=== PATIENT | female | born 1965 | race Caucasian/White ===

== ENCOUNTER 2019-05-26 10:32 | Outpatient (CLI) | payer MEDICARE, BC, SELFPAY ==
--- NOTE | ~2019-05-26 | CT_ITS ---
EXAMINATION: CT abdomen pelvis wo con EXAM DATE: 05/26/2019 11:00 INDICATION: Nausea with right flank pain, symptoms one week. TECHNIQUE: Spiral CT of the abdomen and pelvis was performed without contrast. Axial, coronal and sag ittal images were reviewed. The dose-length product (DLP) for this examination was 363.59 mGy-cm. T he exposure was tailored according to patient size (auto mA exposure control), and iterative reconstr uction (ASIR) was used as additional dose reduction technique. There is no prior study for compariso n. FINDINGS: There is 3 mm right superior calyceal stone. No obstructing ureteral stones. The uterus is not identified and has likely been surgically resected. The bladder is unremarkable. The liver, sp wilma, adrenal glands and pancreas are unremarkable. Gallbladder is unremarkable. No biliary obstruc tion. There is no retroperitoneal or pelvic lymphadenopathy. There is mild to moderate scattered a rteriosclerotic disease. The appendix is normal. The stomach and small bowel are unremarkable. There is expected amount of c olonic stool. No free intraperitoneal gas. The heart is normal in size. There are no pericardial or pleural effusions. The lung bases are unremarkable. Posterior and interbody fusion L4-S1. Mild to moderate L1 chronic compression fracture, moderate L2 chronic compression fracture, both at the titus perior endplates. IMPRESSION: 1. Small right nephrolithiasis. 2. No acute intra-abdominal findings. Reviewed, dictated and finalized at location B. RIBUTION LEAD
== END 2019-05-26 10:33 | disposition home or self-care (01) ==
PROVIDERS: PCP Physician Assistant; Visit Provider Physician Assistant
DX: R10.9 Unspecified abdominal pain (principal)
CPT/HCPCS: 74176

== ENCOUNTER 2020-05-19 07:01 | Outpatient (CLI) | payer MEDICARE, BC, SELFPAY ==
[2020-05-19 07:18] LABS: Basophils Absolute Auto 0.03 K/mm3 (0.00-0.10); Basophils Percent Auto 0.5 % (0.0-1.0); Eosinophils Absolute Auto 0.23 K/mm3 (0.02-0.50); Eosinophils Percent Auto 3.8 % (1.0-6.0); Hematocrit 41.2 % (35.0-49.0); Hemoglobin 13.7 g/dL (12.0-15.0); Immature Granulocyte Absolute 0.02 K/mm3 (0.00-0.00); Immature Granulocyte Percent A 0.3 % (0.0-0.0); Lymphocytes Absolute Auto 2.31 K/mm3 (1.10-4.50); Lymphocytes Percent Auto 38.3 % (18.0-42.0); Mean Corpuscular HGB Conc 33.3 g/dL (32.0-36.0); Mean Corpuscular Hemoglobin 31.7 pg (27.0-31.0); Mean Corpuscular Volume 95.4 fL (78.0-102.0); Mean Platelet Volume 10.1 fl (9.2-11.8); Monocytes Absolute Auto 0.44 K/mm3 (0.10-0.90); Monocytes Percent Auto 7.3 % (2.0-11.0); Neutrophils Percent Auto 49.8 % (50.0-70.0); Platelet Count Result 191 K/mm3 (150-420); Red Blood Count 4.32 M/mm3 (4.20-5.40); Red Cell Distribution Width 13.7 % (11.6-14.4)
[2020-05-19 08:41] LABS: Alanine Aminotransferase 24 U/L (14-59); Albumin Level 3.9 g/dL (3.4-5.0); Alkaline Phosphatase 68 U/L (46-116); Anion Gap 9 mmol/L (8-16); Aspartate Amino Transferase 26 U/L (15-37); Bilirubin,Total 0.4 mg/dL (0.00-1.00); Blood Urea Nitrogen 13 mg/dL (7-18); Calcium 9.1 mg/dL (8.5-10.1); Carbon Dioxide 29 mmol/L (21-32); Chloride 107 mmol/L (98-108); Cholesterol 203 mg/dL (0-200); Estimated Glomerular Filt Rate > 60; Glucose 83 mg/dL (70-99); HDL Direct 69 mg/dL (40-60); LDL Cholesterol Calculated 113 mg/dL (<130); Osmolality Calculated 299 mOsm/kg (285-295); Potassium 4.7 mmol/L (3.5-5.1); Sodium 145 mmol/L (136-145); Total Protein 6.7 g/dL (6.4-8.2); Triglycerides 106 mg/dL (0-150)
== END 2020-05-19 07:02 | disposition home or self-care (01) ==
LOC: CHSLAB 07:07
PROVIDERS: PCP Physician Assistant; Visit Provider Family Medicine
DX: R42 Dizziness and giddiness (principal); Z13.220 Encounter for screening for lipoid disorders; Z13.6 Encounter for screening for cardiovascular disorders
CPT/HCPCS: 36415; 80053; 80061; 85025

== ENCOUNTER 2020-05-21 09:24 | Outpatient (CLI) | payer MEDICARE, SELFPAY ==
--- NOTE | ~2020-05-21 | US_ITS ---
EXAMINATION: US carotid duplex BI DATE: 05/21/2020 10:18 INDICATION: Lightheadedness. Peripheral arterial disease. TECHNIQUE: Grayscale, color Doppler, and pulsed Doppler images of the cervical carotid arteries were obtained. The degree of vessel stenosis is placed in one of the following categories: normal, <50%, 5 0-69%, >=70% but less than near-occlusion, near-occlusion, or total occlusion. Note that percent sten osis relative to normal distal artery lumen diameter is indirectly measured from velocity measurement s as described by Ugo, et al. Radiology 2003; 229:340-346. Notes: Normal: Peak systolic velocity <125 centimeters/sec and no plaque <50%. Peak systolic velocity <125 ( EDV <40; ICA/CCA PSV ratio <2.0; used these factors only a tandem lesions or low cardiac output or co ntralateral disease) 50-69 %: PSV 125-230 (EDV 40-100; ratio 2-4) >= 70% but less than near occlusion: PSV greater than 230 (EDV > 100; ratio> 4.0) Near Occlusion: PSV that is variable; markedly narrowed lumen Occlusion: Absent flow on color/spectral Doppler and no lumen on fletcher scale. COMPARISON: None. FINDINGS: RIGHT: The right common carotid artery (CCA) peak systolic velocity (PSV) is 76 cm/s. The right internal car otid artery (ICA) PSV is 78 cm/s. The right ICA end-diastolic velocity (EDV) is 40 cm/s. The right IC A/CCA PSV ratio is 1.0. The external carotid artery (ECA) PSV is 93 cm/s. There is antegrade flow in the right vertebral artery. LEFT: The left CCA PSV is 81 cm/s. The left ICA PSV is 83 cm/s. The left ICA EDV is 40 cm/s. The left ICA/C CA PSV ratio is 1.0. The ECA PSV is 92 cm/s. There is antegrade flow in the left vertebral artery. IMPRESSION: 1. Less than 50% stenosis in the right internal carotid artery by sonographic criteria. 2. Less than 50% stenosis in the left internal carotid artery by sonographic criteria. Reviewed, dictated and finalized at location B. [employer] IMPRESSION: 1. Less than 50% stenosis in the right internal carotid artery by sonographic c kevineria. 2. Less than 50% stenosis in the left internal carotid artery by sonographic cr domingo.
--- NOTE | ~2020-05-21 | CT_ITS ---
EXAMINATION: CT lung screening DATE: 05/21/2020 09:45 INDICATION: Personal history of nicotine dependence, current smoker with 30 pack year history TECHNIQUE: Computed tomography (CT) of the chest was performed without intravenous contrast. The dose -length product (DLP) was 72.28 mGy-cm. Automated exposure control and iterative reconstruction techn ique were employed. COMPARISON: None FINDINGS: Mild emphysema is noted. There is a 3 mm subpleural nodule of the right lower lobe on image 69. A subtle 7 mm groundglass opacity is present in the right lower lobe on image 59. There is no pl eural effusion or pneumothorax. No pathologically enlarged thoracic lymph nodes are identified. The h eart size is normal. There is mild thoracic spondylosis. IMPRESSION: 1. Lung-RADS category 2: Benign appearance or behavior. Continue annual screening with noncontrast lo w-dose chest CT in 12 months. Reviewed, dictated and finalized at location A. OR PHYSICAL THERAPIST IMPRESSION: 1. Lung-RADS category 2: Benign appearance or behavior. Continue annual screeni ng with noncontrast low-dose chest CT in 12 months.
== END 2020-05-21 09:25 | disposition home or self-care (01) ==
PROVIDERS: PCP Physician Assistant; Visit Provider Physician Assistant
DX: R07.89 Other chest pain (principal); R42 Dizziness and giddiness; Z12.2 Encounter for screening for malignant neoplasm of respiratory organs; Z87.891 Personal history of nicotine dependence
CPT/HCPCS: 71271; 93880

== ENCOUNTER 2020-06-04 07:37 | Outpatient (CLI) | payer MEDICARE, BC, SELFPAY ==
--- NOTE | 2020-06-04 10:00 | EST_ITS ---
Patient Info Name: Rabia Bal Age: 54 years : 1965 Gender: Female Ht: 66 in Wt: 154 lbs BSA: 1.81 m2 HR: 62 bpm BP: 119 / 76 mmHg Heart Rhythm: Sinus Rhythm Technical Quality: Excellent Exam Date: 06/04/2020 10:01 AM Exam Location: [facility] Patient Status: Outpatient Admit Date: 06/04/2020 Staff Ordering Physician: Randa, Gavin RICKS Attending Provider: Muna, Domingo WARE Exercise Technologist: Leslee Ochoa, JUVENTINO Exercise Physician: Mahogany Guillaume CEP Exam Type: CA stress test treadmill w NM Study Info An exercise stress test was performed. History/Risk Factors Tobacco Use: Current - Every Day If Any Current, Tobacco Type: Cigarettes If Current - Every Day \T\ Cigarettes, Amount: Heavy Tobacco Use (>=10/day) History/Risk Factors Current Smoker. Summary 1. 1. Negative Gavin exercise stress test for ischemic ST changes by ECG criteria. 2. 2. Good functional capacity, achieving 10 METs of workload. 3. 3. Appropriate HR response to exercise. 4. 4. Appropriate HR recovery at 1 minute post exercise. 5. 5. Nuclear scan to follow and will be reported separately. Please correlate with it. Protocol: Gavin Stress ECG Details Stage: REST Duration (min): 2 min : 26 sec Speed (mph): 0.0 Grade (%): 0 HR (bpm): 62 SBP (mmHg): 119 DBP (mmHg): 76 METS: --- Stage: REST Duration (min): 3 min : 14 sec Speed (mph): 0.0 Grade (%): 0 HR (bpm): 75 SBP (mmHg): 119 DBP (mmHg): 76 METS: --- Stage: STAGE 1 Duration (min): 1 min : 0 sec Speed (mph): 1.7 Grade (%): 10 HR (bpm): 92 SBP (mmHg): 119 DBP (mmHg): 76 METS: --- Stage: STAGE 1 Duration (min): 2 min : 0 sec Speed (mph): 1.7 Grade (%): 10 HR (bpm): 106 SBP (mmHg): 119 DBP (mmHg): 76 METS: --- Stage: STAGE 1 Duration (min): 3 min : 0 sec Speed (mph): 1.7 Grade (%): 10 HR (bpm): 105 SBP (mmHg): 118 DBP (mmHg): 64 METS: --- Stage: STAGE 2 Duration (min): 1 min : 0 sec Speed (mph): 2.5 Grade (%): 12 HR (bpm): 118 SBP (mmHg): 118 DBP (mmHg): 64 METS: --- Stage: STAGE 2 Duration (min): 2 min : 0 sec Speed (mph): 2.5 Grade (%): 12 HR (bpm): 126 SBP (mmHg): 118 DBP (mmHg): 64 METS: --- Stage: STAGE 2 Duration (min): 3 min : 0 sec Speed (mph): 2.5 Grade (%): 12 HR (bpm): 133 SBP (mmHg): 118 DBP (mmHg): 64 METS: --- Stage: STAGE 3 Duration (min): 1 min : 0 sec Speed (mph): 3.4 Grade (%): 14 HR (bpm): 148 SBP (mmHg): 118 DBP (mmHg): 64 METS: --- Stage: STAGE 3 Duration (min): 2 min : 0 sec Speed (mph): 3.4 Grade (%): 14 HR (bpm): 153 SBP (mmHg): 118 DBP (mmHg): 64 METS: --- Stage: STAGE 3 Duration (min): 3 min : 0 sec Speed (mph): 3.4 Grade (%): 14 HR (bpm): 156 SBP (mmHg): 118 DBP (mmHg): 64 METS: --- -----
--- NOTE | 2020-06-04 12:07 | WPDCARIOSTRE ---
Nuclear Stress Test INDICATIONS Chest pain PROCEDURE Patient exercised on a standard Gavin protocol. After achieving target HR, patient was injected with 32.8 mCi of cardiolyte. Multiple tomographic images were obtained. These are of good quality. There is moderate size and moderate severity perfusion defect in anterior wall during stress imaging. A separate resting study was performed after patient was injected with 10.5 mCi of cardiolyte. Multiple tomographic images were obtained. These are of good quality. There is moderate size and moderate severity perfusion defect in anterior wall during rest imaging. CONCLUSION 1. Myocardial perfusion imaging demonstrating fixed moderate size and moderate severity anterior perfusion defect suggestive of breast attenuation artifact. 2. No evidence of reversible ischemia. 3. Left ventriculogram demonstrated normal EF at 60%. No wall motion abnormalities. 4. TID score is normal at 0.98.
== END 2020-06-04 07:38 | disposition home or self-care (01) ==
LOC: CHSCARD 07:39
PROVIDERS: PCP Physician Assistant; Visit Provider Physician Assistant
DX: R07.89 Other chest pain (principal)
CPT/HCPCS: 78452; 93017; A9502

== ENCOUNTER 2020-10-06 09:54 | Outpatient (CLI) | payer MEDICARE, BC, SELFPAY ==
--- NOTE | ~2020-10-06 | XR_ITS ---
XR lumbar spine 2-3V 10/06/2020 10:20 Indication: Lumbar radiculopathy Procedure: 3 views lumbar spine Comparison: CT dated 05/26/2019 Findings: There are pedicular screws transfixing L4-S1. There are chronic superior endplate compressi on fractures of L1 and L2, unchanged. No acute fracture or traumatic malalignment. Pedicles appear to be intact. Sacral foramen are symmetric. There are right renal and possible left renal stones. Impression: 1: No acute abnormality of the lumbar spine. 2: Chronic L1 and L2 superior endplate compression fractures. 3: Right nephrolithiasis. Possible left nephrolithiasis. Reviewed, dictated and finalized at location A. Impression: 1: No acute abnormality of the lumbar spine. 2: Chronic L1 and L2 superior endplate compression fractures. 3: Right nephrolithiasis. Possible left nephrolithiasis.
== END 2020-10-06 09:55 | disposition home or self-care (01) ==
LOC: CHSIMG 09:58
PROVIDERS: PCP Physician Assistant; Visit Provider Nurse Practitioner Psychiatric/Mental Health
DX: M54.16 Radiculopathy, lumbar region (principal)
CPT/HCPCS: 72100

== ENCOUNTER 2020-10-11 13:17 | Outpatient (CLI) | payer MEDICARE, BC, SELFPAY ==
--- NOTE | ~2020-10-11 | XR_ITS ---
EXAMINATION: XR hip LT min 2V DATE: 10/11/2020 13:37 INDICATION: Chronic left hip pain. TECHNIQUE: 2 views of left hip were obtained. COMPARISON: None. FINDINGS: Bone alignment is normal. No fracture. There is mild left hip osteoarthritis. There are kenneth nges of posterior fusion procedure in lumbosacral spine. IMPRESSION: 1. Mild left hip osteoarthritis. Reviewed, dictated and finalized at location A.
== END 2020-10-11 13:18 | disposition home or self-care (01) ==
LOC: CHSIMG 13:20
PROVIDERS: PCP Physician Assistant; Visit Provider Physician Assistant
DX: M25.552 Pain in left hip (principal)
CPT/HCPCS: 73502

== ENCOUNTER 2020-10-17 09:13 | Outpatient (CLI) | payer MEDICARE, BC, SELFPAY ==
--- NOTE | ~2020-10-17 | MR_ITS ---
EXAMINATION: MR lumbar spine wo con DATE: 10/17/2020 10:48 INDICATION: Lumbar radiculopathy. TECHNIQUE: Magnetic resonance imaging (MRI) of the lumbar spine was performed without intravenous con trast. Sequences included sagittal T2-weighted FSE, sagittal T2-weighted FS FSE, sagittal STIR FSE, s agittal T1-weighted FSE, and axial T2-weighted FSE. COMPARISON: Lumbar spine radiograph 10/06/2020 FINDINGS: There is 3 mm retrolisthesis of L2 on L3. There are chronic compression fractures of L1 and L2 with 2/5 and 3/5 loss of height, respectively. There are changes of posterior fusion procedure fr om L4 to S1 with pedicle screws in L4 and S1. There are changes of anterior fusion procedure at L4-L5 and L5-S1 with interbody devices. There is mildly decreased disc height at L1-L2 and L2-L3. The dist al spinal cord signal intensity is normal. The conus medullaris is at T12-L1. The following disc leve ls are specifically discussed: L1-L2: The disc is bulging. There is mild bilateral facet joint osteoarthritis. There is no neural fo raminal stenosis. There is mild central canal stenosis. L2-L3: The disc is bulging. There is mild bilateral facet joint osteoarthritis. There is mild bilater al neural foraminal stenosis. There is mild central canal stenosis. L3-L4: The disc is bulging. There is severe bilateral facet joint osteoarthritis. There is moderate r ight and mild left neural foraminal stenosis. There is mild central canal stenosis. L4-L5: There is moderate right and severe left facet joint hypertrophy. There is mild bilateral neura l foraminal stenosis. There is no central canal stenosis. L5-S1: There is mild right facet joint hypertrophy. There is mild right neural foraminal stenosis. Th ere is no central canal stenosis. IMPRESSION: 1. Moderate lumbar spondylosis. 2. Anterior and posterior fusion procedures from L4 to S1. Reviewed, dictated and finalized at location A.
--- NOTE | ~2020-10-17 | DEXA_ITS ---
Bone Density Report Name: Rabia Bal Age: 55 Sex: Female Ethnicity: White Date of : 1965 Indication: screening for osteoporosis; height loss; prior fracture; Referring Provider: Muna, Domingo Study: Bone densitometry was performed. Exam Date: October 17, 2020 Accession number: [id number] Bone Density: Region BMD T-score Z-score Classification AP Spine(L1, L2, L3) 1.118 0.9 2.1 Normal Femoral Neck (Left) 0.757 -0.8 0.3 Normal Total Hip (Left) 0.830 -0.9 -0.1 Normal Femoral Neck (Right) 0.731 -1.1 0.1 Osteopenia Total Hip (Right) 0.831 -0.9 -0.1 Normal Femoral Neck Mean 0.744 -0.9 0.2 Normal Total Hip Mean 0.830 -0.9 -0.1 Normal World Health Organization criteria for BMD impression classify patients as: Normal (T-score at or above -1.0), Osteopenia (T-score between -1.0 and -2.5), or Osteoporosis (T-score at or below -2.5). 10-year Fracture Risk: FRAX not reported because: Premenopausal woman Prior hip or vertebral fracture Clinical Information Provided by Patient: Have had a previous hip or vertebral fracture Has had a low trauma fracture Smokes Has used the following medications: Vitamin D, Calcium Patient maximum height was 65 Menopause Age: 48 No regular weight bearing exercise Drinks caffeinated beverages Onset of menses at age 11 Premenopausal Impression: The patient's bone mass is within expected range for age, gender and ethnicity. The patient has risk factors, including: smoking, previous fracture. Discussion: BONE DENSITY IS WITHIN EXPECTED LIMITS FOR AGE, SEX AND RACE. HISTORY OF FRACTURE. Although there is a predictable association between low bone mass and the risk of osteoporotic fractures in untreated postmenopausal women, there are no data relating bone density and fracture risk in younger women. The ISCD position is that the diagnosis of ?low bone mass? or ?osteoporosis? should not be made on densitometric criteria alone. WHO criteria only apply to postmenopausal women. Further evaluation should be considered given the patient's history of fracture at a young age. The patient should follow a healthful lifestyle (good nutrition with adequate calcium and vitamin D, and appropriate weight-bearing exercise). Follow-Up: Consider a repeat BMD and Vertebral Fracture Assessment (VFA) exam in 2 years or sooner if medically necessary, to reassess this patient's status. Reported by: Dr. Tobias Garcia on 10/17/2020 11:11:00 AM. Reviewed, dictated and finalized at location A. DWAYNE
== END 2020-10-17 09:14 | disposition home or self-care (01) ==
PROVIDERS: PCP Physician Assistant; Visit Provider Physician Assistant
DX: M54.16 Radiculopathy, lumbar region (principal); M81.0 Age-related osteoporosis without current pathological fracture
CPT/HCPCS: 72148; 77080

== ENCOUNTER 2022-03-27 07:02 | Outpatient (CLI) | payer MEDICARE, SELFPAY ==
[2022-03-27 08:16] LABS: Alanine Aminotransferase 22 U/L (14-59); Albumin Level 3.6 g/dL (3.4-5.0); Alkaline Phosphatase 72 U/L (46-116); Anion Gap 6 mmol/L (8-16); Aspartate Amino Transferase 15 U/L (15-37); Bilirubin,Total 0.4 mg/dL (0.00-1.00); Blood Urea Nitrogen 15 mg/dL (7-18); Calcium 8.9 mg/dL (8.5-10.1); Carbon Dioxide 30 mmol/L (21-32); Chloride 107 mmol/L (98-108); Cholesterol 182 mg/dL (0-200); Estimated Glomerular Filt Rate > 60; Glucose 85 mg/dL (70-99); HDL Direct 57 mg/dL (40-60); LDL Cholesterol Calculated 103 mg/dL (<130); Osmolality Calculated 295 mOsm/kg (285-295); Potassium 4.3 mmol/L (3.5-5.1); Sodium 143 mmol/L (136-145); Total Protein 6.9 g/dL (6.4-8.2); Triglycerides 110 mg/dL (0-150)
== END 2022-03-27 07:03 | disposition home or self-care (01) ==
LOC: CHSLAB 07:07
PROVIDERS: PCP Family Medicine; Visit Provider Physician Assistant
DX: E78.5 Hyperlipidemia, unspecified (principal)
CPT/HCPCS: 36415; 80053; 80061

== ENCOUNTER 2022-10-03 07:07 | Outpatient (CLI) | payer MEDICARE, SELFPAY ==
[2022-10-03 07:57] LABS: Alanine Aminotransferase 24 U/L (14-59); Albumin Level 3.7 g/dL (3.4-5.0); Alkaline Phosphatase 67 U/L (46-116); Anion Gap 7 mmol/L (8-16); Aspartate Amino Transferase 15 U/L (15-37); Bilirubin,Total 0.7 mg/dL (0.00-1.00); Blood Urea Nitrogen 15 mg/dL (7-18); Calcium 9.3 mg/dL (8.5-10.1); Carbon Dioxide 30 mmol/L (21-32); Chloride 107 mmol/L (98-108); Cholesterol 206 mg/dL (0-200); Estimated Glomerular Filt Rate > 60; Glucose 93 mg/dL (70-99); HDL Direct 78 mg/dL (40-60); LDL Cholesterol Calculated 117 mg/dL (<130); Osmolality Calculated 298 mOsm/kg (285-295); Potassium 4.4 mmol/L (3.5-5.1); Sodium 144 mmol/L (136-145); Total Protein 6.8 g/dL (6.4-8.2); Triglycerides 57 mg/dL (0-150)
[2022-10-07 20:09] LABS: Vitamin D 25 Hydroxy 55 ng/mL (30-100)
== END 2022-10-03 07:08 | disposition home or self-care (01) ==
LOC: CHSLAB 07:10
PROVIDERS: PCP Family Medicine; Visit Provider Physician Assistant
DX: E78.5 Hyperlipidemia, unspecified (principal); E55.9 Vitamin D deficiency, unspecified
CPT/HCPCS: 36415; 80053; 80061; 82306

== ENCOUNTER 2022-10-23 13:18 | Outpatient (CLI) | payer MEDICARE, BC, SELFPAY ==
--- NOTE | ~2022-10-23 | DEXA_ITS ---
Bone Density Report Name: EMILIANO HAYWOOD Age: 57 Sex: Female Ethnicity: White Date of : 1965 Indication: screening for osteoporosis; height loss; prior fracture; Referring Provider: RandaMary Grace, Gavin Study: Bone densitometry was performed. Exam Date: October 23, 2022 Accession number: [id number] Bone Density: Region BMD T-score Z-score Classification AP Spine(L1, L2, L3) 1.080 0.6 1.9 Normal Femoral Neck (Left) 0.793 -0.5 0.7 Normal Total Hip (Left) 0.861 -0.7 0.2 Normal Femoral Neck (Right) 0.724 -1.1 0.1 Osteopenia Total Hip (Right) 0.828 -0.9 0.0 Normal Femoral Neck Mean 0.759 -0.8 0.4 Normal Total Hip Mean 0.844 -0.8 0.1 Normal World Health Organization criteria for BMD impression classify patients as: Normal (T-score at or above -1.0), Osteopenia (T-score between -1.0 and -2.5), or Osteoporosis (T-score at or below -2.5). 10-year Fracture Risk: FRAX not reported because: Premenopausal woman Prior hip or vertebral fracture Clinical Information Provided by Patient: Have had a previous hip or vertebral fracture Has had a low trauma fracture Smokes Has used the following medications: Vitamin D, Calcium Patient maximum height was 65 Menopause Age: 48 No regular weight bearing exercise Drinks caffeinated beverages Onset of menses at age 11 Premenopausal Impression: The patient's bone mass is within expected range for age, gender and ethnicity. The patient has risk factors, including: smoking, previous fracture. Discussion: BONE DENSITY IS WITHIN EXPECTED LIMITS FOR AGE, SEX AND RACE. HISTORY OF FRACTURE. Although there is a predictable association between low bone mass and the risk of osteoporotic fractures in untreated postmenopausal women, there are no data relating bone density and fracture risk in younger women. The ISCD position is that the diagnosis of ?low bone mass? or ?osteoporosis? should not be made on densitometric criteria alone. WHO criteria only apply to postmenopausal women. Further evaluation should be considered given the patient's history of fracture at a young age. The patient should follow a healthful lifestyle (good nutrition with adequate calcium and vitamin D, and appropriate weight-bearing exercise). Follow-Up: Consider a repeat BMD and Vertebral Fracture Assessment (VFA) exam in 2 years or sooner if medically necessary, to reassess this patient's status. Reported by: Dr. Clem Jacinto on 10/23/2022 1:39:00 PM. Reviewed, dictated and finalized at location A. [facility]PITALDaxa
== END 2022-10-23 13:19 | disposition home or self-care (01) ==
LOC: CHSIMG 13:19
PROVIDERS: PCP Physician Assistant; Visit Provider Family Medicine
DX: Z78.0 Asymptomatic menopausal state (principal); M85.88 Other specified disorders of bone density and structure, other site
CPT/HCPCS: 77080

== ENCOUNTER 2023-01-28 12:12 | Outpatient (CLI) | payer MEDICARE, BC, SELFPAY ==
--- NOTE | ~2023-01-28 | XR_ITS ---
EXAMINATION: XR_CERV2-3V_CR DATE: 01/28/2023 12:27 INDICATION: Neck pain radiating down the left arm. TECHNIQUE: 3 views of cervical spine were obtained. COMPARISON: None. FINDINGS: There is 2 mm retrolisthesis of C5 on C6. There is 7 degrees levocurvature of cervicothorac ic spine. There are changes of disc replacement at C6-C7. Vertebral body heights are normal. There is mildly decreased disc height at C5-C6. There is multilevel mild facet joint osteoarthritis. There is mild central canal stenosis at C5-C6. No prevertebral soft tissue swelling. IMPRESSION: 1. Mild cervical spondylosis. 2. Disc replacement at C6-C7. Reviewed, dictated and finalized at location E.
== END 2023-01-28 12:13 | disposition home or self-care (01) ==
LOC: CHSIMG 12:15
PROVIDERS: PCP Physician Assistant; Visit Provider Registered Nurse
DX: M54.2 Cervicalgia (principal); M43.02 Spondylolysis, cervical region
CPT/HCPCS: 72040

== ENCOUNTER 2023-03-02 10:10 | Outpatient (CLI) | payer MEDICARE, BC, SELFPAY ==
--- NOTE | 2023-03-02 11:00 | NEURO_ITS ---
Impression: # Complains of left upper extremity tingling. # Normal Nerve Conduction Study. # No Carpal Tunnel Syndrome or ulnar neuropathy. # Needle/EMG exam not requested. Nerve Conduction Studies Anti Sensory Summary Table Stim Site NR Peak (ms) P-T Amp (?V) Site1 Site2 Delta-P (ms) Dist (cm) Shahab (m/s) Left Median Anti Sensory (2-3nd Digit) Wrist 3.4 35.7 Wrist 2-3nd Digit 3.4 14.0 41 Wrist 3.4 47.2 Wrist 2-3nd Digit 3.4 14.0 41 Left Radial Anti Sensory (Base 1st Digit) Wrist 2.0 38.5 Wrist Base 1st Digit 2.0 0.0 Left Ulnar Anti Sensory (5th Digit) Wrist 2.8 49.8 Wrist 5th Digit 2.8 14.0 50 Motor Summary Table Stim Site NR Onset (ms) O-P Amp (mV) Site1 Site2 Delta-0 (ms) Dist (cm) Shahab (m/s) Left Median Motor (Abd Poll Brev) Wrist 3.4 3.4 Elbow Wrist 4.2 26.0 62 Elbow 7.6 3.0 Left Ulnar Motor (Abd Dig Minimi) Wrist 2.9 5.5 A Elbow Wrist 5.7 32.0 56 A Elbow 8.6 5.2 F Wave Studies NR F-Lat (ms) L-R F-Lat (ms) Left Median (Mrkrs) (Abd Poll Brev) 26.88 Left Ulnar (Mrkrs) (Abd Dig Min) 27.37 MTDD
== END 2023-03-02 10:11 | disposition home or self-care (01) ==
LOC: ANHNEURO 10:12
PROVIDERS: PCP Physician Assistant; Visit Provider Physician Assistant
DX: R20.2 Paresthesia of skin (principal); M54.12 Radiculopathy, cervical region
CPT/HCPCS: 95909

== ENCOUNTER 2023-03-31 06:59 | Outpatient (CLI) | payer MEDICARE, SELFPAY ==
[2023-03-31 07:38] LABS: Alanine Aminotransferase 25 U/L (14-59); Alkaline Phosphatase 72 U/L (46-116); Anion Gap 4 mmol/L (8-16); Aspartate Amino Transferase 17 U/L (15-37); Bilirubin,Total 0.6 mg/dL (0.00-1.00); Blood Urea Nitrogen 15 mg/dL (7-18); Calcium 9.3 mg/dL (8.5-10.1); Carbon Dioxide 32 mmol/L (21-32); Chloride 104 mmol/L (98-108); Cholesterol 196 mg/dL (0-200); Estimated Glomerular Filt Rate > 60; Glucose 94 mg/dL (70-99); HDL Direct 84 mg/dL (40-60); LDL Cholesterol Calculated 97 mg/dL (<130); Osmolality Calculated 290 mOsm/kg (285-295); Potassium 4.4 mmol/L (3.5-5.1); Sodium 140 mmol/L (136-145); Total Protein 6.9 g/dL (6.4-8.2); Triglycerides 76 mg/dL (0-150)
[2023-04-05 19:00] LABS: Vitamin D 25 Hydroxy 79 ng/mL (30-100)
== END 2023-03-31 07:00 | disposition home or self-care (01) ==
LOC: CHSLAB 07:01
PROVIDERS: PCP Family Medicine; Visit Provider Physician Assistant
DX: E55.9 Vitamin D deficiency, unspecified (principal); E78.5 Hyperlipidemia, unspecified
CPT/HCPCS: 36415; 80053; 80061; 82306

== ENCOUNTER 2023-05-03 12:00 | Emergency (ER) | payer MEDICARE, BC, SELFPAY ==
--- NOTE | ~2023-05-03 | CT_ITS ---
EXAMINATION: CT lumbar spine wo con DATE: 05/03/2023 13:21 INDICATION: Midline L spine tenderness x 2 wks NKI . TECHNIQUE: Computed tomography (CT) of the lumbar spine was performed without intravenous contrast. A utomated exposure control and iterative reconstruction technique were employed. The dose-length produ ct was 227.60 mGy-cm. COMPARISON: MR lumbar spine 10/17/2020. FINDINGS: Osteopenia. Posterior spinal fusion hardware spanning L4-S1. The inferior pedicle screws pr oject beyond the anterior cortex, the hardware is otherwise unremarkable in appearance. Interbody dev ices at L4-5 and L5-S1, in good position. Possible hemilaminectomy defects on the left at L4 and L5. Stable 2 mm retrolisthesis at L2-3. Stable mild L1 and moderate L2 compression deformities. Multileve l degenerative disc disease. Multilevel facet sclerosis and hypertrophy. Severe right neural foramina l narrowing at L3-4. Mild-moderate degrees of neural foraminal narrowing at most of the remaining lum bar levels. No severe central canal stenosis, noting that metal artifact from hardware obscures detai l at some levels. IMPRESSION: No acute fracture or traumatic malalignment in the lumbar spine. Uncomplicated L4-S1 posterior fusion hardware. Severe right L3-4 neural foraminal narrowing. Multilevel severe facet arthropathy. Multilevel moderat e degenerative disc disease. No severe central canal stenosis. Stable minimal grade 1 retrolisthesis at L2-3 and L1 and L2 compression deformities. Reviewed, dictated and finalized at location K. OOD MANAGER IMPRESSION: No acute fracture or traumatic malalignment in the lumbar spine. Uncomplicated L4-S1 posterior fusion hardware. Severe right L3-4 neural foraminal narrowing. Multilevel severe facet arthropat hy. Multilevel moderate degenerative disc disease. No severe central canal sten osis. Stable minimal grade 1 retrolisthesis at L2-3 and L1 and L2 compression deformi ties.
--- NOTE | ~2023-05-03 | XR_ITS ---
XR pelvis 1-2V DATE: 05/03/2023 13:22 INDICATION: Bilateral hip pain left greater than right for 2 weeks TECHNIQUE: AP pelvis COMPARISON: None FINDINGS: Pedicle screws and rods at L4-S1. Interbody spinal fusion at L4-5 and L5-S1. Normal alignment at the pubic symphysis and sacroiliac joints. Hip joint spaces are symmetric and rel atively preserved. No pelvic fracture or bone destruction. No hip fracture or dislocation. IMPRESSION: Status post posterior and interbody spinal fusion at L4-S1 Reviewed, dictated and finalized at location A. [employer]
[2023-05-03 12:05] VITALS: BP 125/74; PULSE 83; RESP 20; TEMP 36.9; O2SAT 98
[2023-05-03 12:41] LABS: Appearance Urine Clear (Clear); Bilirubin Urine Negative (Negative); Blood Urine Negative (Negative); Color Urine Yellow (Yellow); Glucose Urine UA Negative (Negative); Ketones Urine Negative (Negative); Leukocyte Esterase Ur Trace LEU/UL (Negative); Nitrate Urine Negative (Negative); Protein Urine Negative (Negative); Specific Grav Ur >= 1.030 (1.010-1.020); Urobilinogen Urine 0.2 mg/dL (0.2-1.0)
[2023-05-03 12:48] LABS: Add Urine Microscopic? YES; Bacteria Urine 1+ /hpf; Mucus Urine Moderate /lpf; RBC Urine None seen /hpf (0-2); Squamous Epithelial Cell Urine Moderate /hpf (Few); WBC Urine 0-5 /hpf (0-3)
[2023-05-03] MEDS: ACETAMINOPHEN 500 MG TABLET 1000 MG PO (13:10)
[2023-05-03] MEDS: IBUPROFEN 400 MG TABLET 800 MG PO (13:10)
[2023-05-03] MEDS: methocarbamoL 750 MG TABLET 1500 MG PO (13:11)
--- NOTE | 2023-05-03 13:16 | ED.GENADULT ---
HPI - General Adult General Chief complaint: Back Pain/Injury Stated complaint: back pain Time Seen by Provider: 05/03/23 12:09 History of Present Illness HPI narrative: this is a 57-year-old female presenting ED with a chief complaint lower back pain. Patient has been having intermittent hip/back pain for the last year. However the last 2 weeks has gotten significantly worse. Is worse on the left than right and sometimes cause shooting pains down her legs. It is worse with lifting and moving. She has been using medical marijuana oil for pain control. No fevers, trauma, history of cancer, urinary retention, bowel incontinence or lower weakness. Related Data Allergies Allergy/AdvReac Type Severity Reaction Status Date / Time No Known Allergies Allergy Verified 05/03/23 13:01 [facility] Surgical History Surgical History Previous back surgery Exam Narrative: APPEARANCE: No apparent distress. Patient appears older than her stated age Head: atraumatic. EYES: EOMI, NOSE: Atraumatic NECK: Trachea midline RESPIRATORY: No increased rate of breathing CARDIOVASCULAR: RRR, ABDOMINAL: Non-distended MUSCULOSKELETAl: midline lumbar tenderness, , no paralumbar or SI tenderness. No overlying skin changes.straight leg negative bilaterally , patient able ambulate without difficulty. NEURO: Alert. Moving 4/4 extremities SKIN:: Warm, dry. Normal color PSYCHIATRIC: Normal affect Course Vital Signs Vital signs: Vital Signs Temperature 98.4 F 05/03/23 12:05 Pulse Rate 83 05/03/23 12:05 Respiratory Rate 20 05/03/23 12:05 Blood Pressure 125/74 05/03/23 12:05 Pulse Oximetry 98 05/03/23 12:05 Oxygen Delivery Room Air 05/03/23 12:05 Temperature 98.4 F 05/03/23 12:05 Pulse Rate 83 05/03/23 12:05 Respiratory Rate 20 05/03/23 12:05 Blood Pressure 125/74 05/03/23 12:05 Pulse Oximetry 98 05/03/23 12:05 Oxygen Delivery Room Air 05/03/23 12:05 Medical Decision Making [facility] Narrative Medical decision making narrative: -Course: 57-year-old female presenting with acute on chronic hip pain. CT showed some degenerative changes with moderate to severe neural foraminal narrowing. no concerning physical exam findings. Patient treated with Motrin Tylenol Robaxin. She will be discharged primary care follow-up. -DDX includes but is not limited to: Arthritis, lower back strain, sciatica degenerative joint disease, neoplasm -Social determinants of health: retired factory maintenance technician, lives with her debilitated (parkinsons) -Independent interpretation of studies: CT L spine: No acute fracture or traumatic malalignment in the lumbar spine. Uncomplicated L4-S1 posterior fusion hardware. Severe right L3-4 neural foraminal narrowing. Multilevel severe facet arthropathy. Multilevel moderate degenerative disc disease. No severe central canal stenosis. Stable minimal grade 1 retrolisthesis at L2-3 and L1 and L2 compression deformities. -Interventions: Motrin Tylenol Robaxin -Shared decision making / Disposition: discharged. -RX Motrin Tylenol Robaxin lidocaine patch Vital Signs Vital Signs: Vital Signs Temperature 98.4 F 05/03/23 12:05 Pulse Rate 83 05/03/23 12:05 Respiratory Rate 20 05/03/23 12:05 Blood Pressure 125/74 05/03/23 12:05 Pulse Oximetry 98 05/03/23 12:05 Oxygen Delivery Room Air 05/03/23 12:05 Temperature 98.4 F 05/03/23 12:05 Pulse Rate 83 05/03/23 12:05 Respiratory Rate 20 05/03/23 12:05 Blood Pressure 125/74 05/03/23 12:05 Pulse Oximetry 98 05/03/23 12:05 Oxygen Delivery Room Air 05/03/23 12:05 Lab Data Labs: Lab Results 05/03/23 Range/Units 12:39 Urine Color Yellow (Yellow) Urine Appearance Clear (Clear) Urine pH 6.0 (5.0-8.0) Ur Specific [place] >= 1.030 H (1.010-1.020) Urine Protein Negative (Negative) Urine Glucose (UA) Negative
[2023-05-03 14:46] VITALS: BP 124/70; PULSE 84; RESP 19; O2SAT 98
== END 2023-05-03 14:53 | disposition home or self-care (01) ==
PROVIDERS: Emergency Provider Emergency Medicine; PCP Physician Assistant
DX: S39.012A Strain of muscle, fascia and tendon of lower back, initial encounter (principal); M19.90 Unspecified osteoarthritis, unspecified site; X58.XXXA Exposure to other specified factors, initial encounter
CPT/HCPCS: 72131; 72170; 81001; 99284; A9270

== ENCOUNTER 2023-05-13 08:50 | Emergency (ER) | payer MEDICARE, BC, SELFPAY ==
[2023-05-13 08:50] VITALS: BP 128/86; PULSE 84; RESP 16; TEMP 36.3; O2SAT 98
--- NOTE | 2023-05-13 09:19 | ED.BACK ---
HPI - Back Pain/Injury General Chief Complaint: Back Pain/Injury Stated Complaint: back pain Time Seen by Provider: 05/13/23 09:14 Source: patient Mode of arrival: ambulatory Limitations: no limitations History of Present Illness HPI Narrative: 57-year-old female with a history of multilevel lumbar facet arthropathy, multilevel degenerative disc disease, retrolisthesis L2/L3, L1/L2 compression fracture status post L4-S1 posterior spinal fusion, status post removal of C6/7 intervertebral disc disease presents to the ER with -- low back pain which radiates anteriorly. The patient had similar pain a few weeks ago for which she received anti-inflammatory and muscle relaxants. Her pain got better. Yesterday when she was trying to clean her house she had recurrence of the low back pain. No motor or sensory loss. No bladder or bowel involvement. No fever. -- She has intermittent neck, midback and lower back pain with spontaneous resolution. No dysuria or hematuria patient had a negative stress test in 2020. MD elicited complaint: back pain and back injury Pertinent past history: prior back pain Onset (ago): week(s) Timing: constant Severity: moderate Similar Symptoms Previously: Yes Quality: aching Location: lumbar spine Radiation: abdomen Exacerbating factors: movement Associated symptoms: denies other symptoms Work related injury: No Related Data Allergies Allergy/AdvReac Type Severity Reaction Status Date / Time No Known Allergies Allergy Verified 05/03/23 13:01 Review of Systems Review of Systems: All systems reviewed & are unremarkable except as noted in HPI and below Constitutional: Constitutional: Reports as per HPI and Reports no additional constitutional complaints Eyes: Eyes: Reports as per HPI and Reports no additional eye complaints ENT: Reports system reviewed and no additional complaints, except as documented and Reports as per HPI Cardiovascular: Cardiovascular: Reports as per HPI and Reports no additional cardiovascular complaints Respiratory: Respiratory: Reports as per HPI and Reports no additional respiratory complaints Gastrointestinal: Gastrointestinal: Reports as per HPI and Reports no additional gastrointestinal complaints Genitourinary: Genitourinary: Reports no additional female genitourinary complaints and Reports as per HPI Musculoskeletal: Musculoskeletal: Reports no additional musculoskeletal complaints, Reports as per HPI and Reports back pain Integumentary/Breasts: Skin/Breast: Reports system reviewed and no additional complaints, except as docu and Reports as per HPI Neurologic: Reports system reviewed and no additional complaints, except as documented and Reports as per HPI Psychiatric: Psychiatric: Reports no additional psychiatric complaints and Reports as per HPI Endocrine: Endocrine: Reports no additional endocrine complaints and Reports as per HPI Hematologic/Lymphatic: Hematologic/Lymphatic: Reports no additional hematologic/lymphatic complaints and Reports as per HPI Allergic/Immunologic: Allergic/Immunologic: Reports no additional allergic/immunologic complaints and Reports as per HPI [facility] Past Medical History Medical History (Updated 05/13/23 @ 09:58 by Tawanda Riggins MD) Chronic low back pain Surgical History Surgical History (Updated 05/13/23 @ 09:50 by Tawanda Riggins MD) H/O neck surgery Previous back surgery Exam Const: General: no acute distress Nutritional Appearance: thin Orientation/consciousness: patient oriented x3 Limitations: no limitations HENMT: Head: normal to inspection Ears: external ears normal Face/Nose/Sinus: Normal external nose present Face and sinus: normal facial exam Mouth: Yes Normal oral and palatal mucosa present Throat: posterior oropharynx normal Eyes: Conjunctivae: conjunctivae normal Pupils: Equal, round and reactive pupils present EOM: EOMs intact bilaterally Direct Ophthalmoscopy: no photophobia Nec
[2023-05-13 09:54] LABS: Appearance Urine Clear (Clear); Bilirubin Urine Negative (Negative); Blood Urine Negative (Negative); Color Urine Yellow (Yellow); Glucose Urine UA Negative (Negative); Ketones Urine Negative (Negative); Leukocyte Esterase Ur Negative LEU/UL (Negative); Nitrate Urine Negative (Negative); Protein Urine Negative (Negative); Urobilinogen Urine 0.2 mg/dL (0.2-1.0)
[2023-05-13 10:05] LABS: Add Urine Microscopic? NO
[2023-05-13] MEDS: KETOROLAC 30 MG/ML VIAL (*BKC) IM (10:14)
[2023-05-13] MEDS: methylPREDNISolone SOD SUCC 40 MG VIAL IM (10:14)
[2023-05-13 10:20] VITALS: BP 124/62; PULSE 72; RESP 18; O2SAT 99
== END 2023-05-13 10:20 | disposition home or self-care (01) ==
PROVIDERS: Emergency Provider Internal Medicine Critical Care Medicine; PCP Physician Assistant
DX: M54.50 Low back pain, unspecified (principal); G89.29 Other chronic pain
CPT/HCPCS: 81003; 96372; 99284; J1885; J2920

== ENCOUNTER 2023-10-05 07:03 | Outpatient (CLI) | payer MEDICARE, BC, SELFPAY ==
[2023-10-05 07:18] LABS: Basophils Absolute Auto 0.03 K/mm3 (0.00-0.10); Basophils Percent Auto 0.5 % (0.0-1.0); Eosinophils Absolute Auto 0.15 K/mm3 (0.02-0.50); Eosinophils Percent Auto 2.3 % (1.0-6.0); Hematocrit 42.9 % (35.0-49.0); Hemoglobin 14.9 g/dL (12.0-15.0); Immature Granulocyte Absolute 0.01 K/mm3 (0.00-0.00); Immature Granulocyte Percent A 0.2 % (0.0-0.0); Lymphocytes Absolute Auto 2.09 K/mm3 (1.10-4.50); Lymphocytes Percent Auto 32.5 % (18.0-42.0); Mean Corpuscular HGB Conc 34.7 g/dL (32-36); Mean Corpuscular Volume 94.9 fL (78.0-102.0); Mean Platelet Volume 10.5 fl (9.2-11.8); Monocytes Absolute Auto 0.41 K/mm3 (0.10-0.90); Monocytes Percent Auto 6.4 % (2.0-11.0); Neutrophils Absolute Auto 3.75 K/mm3 (1.70-7.20); Neutrophils Percent Auto 58.1 % (50.0-70.0); Platelet Count Result 177 K/mm3 (150-420); Red Blood Count 4.52 M/mm3 (4.20-5.40); Red Cell Distribution Width 14.5 % (11.6-14.4); White Blood Count 6.4 K/mm3 (4.8-10.8)
[2023-10-05 07:55] LABS: Alanine Aminotransferase 25 U/L (14-59); Albumin Level 3.8 g/dL (3.4-5.0); Alkaline Phosphatase 52 U/L (46-116); Anion Gap 7 mmol/L (4-12); Aspartate Amino Transferase 20 U/L (15-37); Bilirubin,Total 0.4 mg/dL (0.00-1.00); Blood Urea Nitrogen 11 mg/dL (7-18); Calcium 9.1 mg/dL (8.5-10.1); Carbon Dioxide 30 mmol/L (21-32); Chloride 104 mmol/L (98-108); Cholesterol 169 mg/dL (0-200); Estimated Glomerular Filt Rate > 60; Glucose 90 mg/dL (70-99); HDL Direct 74 mg/dL (40-60); LDL Cholesterol Calculated 83 mg/dL (<130); Osmolality Calculated 291 mOsm/kg (285-295); Potassium 4.4 mmol/L (3.5-5.1); Sodium 141 mmol/L (136-145); Total Protein 6.7 g/dL (6.4-8.2); Triglycerides 58 mg/dL (0-150)
[2023-10-07 02:49] LABS: Vitamin D 25 Hydroxy 66 ng/mL (30-100)
== END 2023-10-05 07:04 | disposition home or self-care (01) ==
LOC: CHSLAB 07:06
PROVIDERS: PCP Physician Assistant; Visit Provider Physician Assistant
DX: E78.5 Hyperlipidemia, unspecified (principal); E55.9 Vitamin D deficiency, unspecified
CPT/HCPCS: 36415; 80053; 80061; 82306; 85025